=== PATIENT | female | born 1990 ===

== ENCOUNTER 2017-09-14 11:56 | Emergency (ER) | payer MEDICAID, OTHER ==
[2017-09-14 12:16] VITALS: TEMP 98; O2SAT 98
[2017-09-14] MEDS ORDERED: Albuterol-Ipratrop 3 mg / 0.5 (3 ml) UD INH STA ×2 (12:57→14:05)
[2017-09-14] MEDS ORDERED: Albuterol-Ipratrop 3 mg / 0.5 (3 ml) UD ONE ×2 (12:59→14:11)
--- NOTE | 2017-09-14 13:14 | C.PDOC ---
History Of Present Illness 27 year old female, whose PMHx includes Asthma, presents to the ED for evaluation of fever, generalized body aches and productive cough which has been intermittent for 5 days. Patient states her fever resolved 2 days ago. She reports she is still coughing, feeling shortness of breath, throat pain and bilateral ear fullness. Patient has been using her inhaler and nebulizer more often than usual without any decrease in symptoms. Patient has taken Mucinex multiple times without relief. She denies nausea, vomiting, abdominal pain at this time. Time Seen by Provider: 09/14/17 12:46 Chief Complaint (Nursing): Cough, Cold, Congestion History Per: Patient History/Exam Limitations: no limitations Onset/Duration Of Symptoms: Days Current Symptoms Are (Timing): Still Present Location Of Pain: Throat, Diffuse Myalgias Associated Symptoms: Fever, Sore Throat, Cough, Sputum. denies: Nausea, Vomiting Ear Symptoms: Bilateral: Ear Fullness Additional History Per: Patient Past Medical History Reviewed: Historical Data, Nursing Documentation, Vital Signs Vital Signs: Last Vital Signs Temp 98 F 09/14/17 12:14 Pulse 62 09/14/17 15:05 Resp 18 09/14/17 15:05 BP 123/79 09/14/17 15:05 Pulse Ox 98 09/14/17 15:05 - Medical History PMH: Asthma Surgical History: No Surg Hx Family History: States: Unknown Family Hx - Social History Hx Alcohol Use: No Hx Substance Use: No - Immunization History Hx Tetanus Toxoid Vaccination: No Hx Influenza Vaccination: No Hx Pneumococcal Vaccination: No Review Of Systems Constitutional: Positive for: Fever, Chills ENT: Positive for: Throat Pain, Other (bilateral ear fullness) Respiratory: Positive for: Cough, Sputum Physical Exam - Physical Exam Appears: Well, Non-toxic, No Acute Distress, Other (well-nourished) Skin: Normal Color, Warm, Dry Head: Atraumatic, Normacephalic Eye(s): bilateral: Normal Inspection Ear(s): Bilateral: Normal Nose: Normal, No Discharge Oral Mucosa: Moist Throat: Erythema (mild), No Exudate Neck: Supple Chest: Symmetrical, No Deformity, No Tenderness Cardiovascular: Rhythm Regular, No Murmur Respiratory: No Rales, No Rhonchi, Wheezing (inspiratory and expiratory, noted in all [place] bilaterally ), Other (productive cough noted ) Extremity: Normal ROM, Capillary Refill (less than 2 seconds ) Neurological/Psych: Normal Speech, Normal Cognition Gait: Steady ED Course And Treatment O2 Sat by Pulse Oximetry: 98 (on RA) Pulse Ox Interpretation: Normal Medical Decision Making Medical Decision Making: Progress: CXR ordered and reviewed. Albuterol INH and Prednisone PO administered. 200 pm pt feeling a bit better, decreased wheezing on lung exam. cxr neg for infiltrate. will give another neb and re-eval. pt with pf 350 249 pm pt feeling better, lungs with only occasional scant exp wheeze, pt declines third nebulizer treatment. will d/c home with prednisone, albuterol, tamiflu. Disposition Counseled Patient/Family Regarding: Diagnosis, Need For Followup, Rx Given - Disposition Referrals: [facility] [Outside] Disposition: HOME/ ROUTINE Disposition Time: 14:53 Condition: IMPROVED Additional Instructions: Please use inhaler as prescribed (albuterol) and take tamiflu as prescribed. Tylenlol or Motrin for throat pain. Prednisone as prescribed. Use nebulizer if needed. Follow up in medical clinic. Return to ER for any worse symptoms. Prescriptions: Albuterol 0.083% [Albuterol Sulfate 3 Ml] 3 ml IH TID #100 neb Albuterol HFA [Ventolin HFA 90 mcg/actuation (8 g)] 2 puff IH Q6 #1 inhaler Ibuprofen [Motrin] 600 mg PO TID #30 tab Oseltamivir Phosphate [Tamiflu] 75 mg PO BID #10 capsule predniSONE [predniSONE Tab] 2 tab PO DAILY #8 tab Instructions: Asthma, Adult (DC), Rescue vs Controller Inhalers, Influenza (ED) Forms: Flashtalking (Tajik), General Discharge Instructions - Clinical Impression Clinical Impression: Influenza-like illness, Asthma exacerbation - PA / [employer] / Resident Statement MD/DO has reviewed & agrees with the documentation as recorded. - Scribe Statement The provider has reviewed the documentation as recorded by the Scribe (Latoya Bruce) All medical record entries made by the Scribe were at my direction and personally dictated by me. I have reviewed the chart and agree that the record accurately reflects my personal performance of the history, physical exam, medical decision making, and the department course for this patient. I have also personally directed, reviewed, and agree with the discharge instructions and disposition.
--- NOTE | 2017-09-14 13:42 | RAD ---
HISTORY: cough wheeze COMPARISON: No prior. TECHNIQUE: Chest PA and lateral FINDINGS: LUNGS: No active pulmonary disease. PLEURA: No significant pleural effusion identified. No pneumothorax apparent. CARDIOVASCULAR: Normal. OSSEOUS STRUCTURES: No significant abnormalities. VISUALIZED UPPER ABDOMEN: Normal. OTHER FINDINGS: None. IMPRESSION: No active disease. No radiographic evidence of pneumonia.
[2017-09-14 15:06] VITALS: BP 123/79; PULSE 62; RESP 18
== END 2017-09-14 15:06 | disposition home or self-care (01) ==
LOC: C.ER 11:56
DX: J45.901 Unspecified asthma with (acute) exacerbation (principal); J11.1 Influenza due to unidentified influenza virus with other respiratory manifestations